=== PATIENT | male | born 2000 | race African-American/Black ===

== ENCOUNTER 2024-01-12 14:52 | Inpatient (IN) | payer OTHER ==
[~2024-01-12] VITALS: Ht 167.6 cm; Wt 61.4 kg
[2024-01-12 15:40] LABS: HEMOGLOBIN 14.5 g/dl (13.5-17.5); MEAN CORPUSCULAR HEMOGLOBIN 27.6 pg (27.0-33.0); MEAN CORPUSCULAR VOLUME 83.8 fl (80.0-96.0); PLATELET COUNT, AUTOMATED 251 10^3/uL (150-450); RED BLOOD COUNT 5.25 10^6/uL (4.30-6.10); WHITE BLOOD COUNT 4.1 10^3/uL (4.0-10.0)
[2024-01-12 16:07] LABS: ETHYL ALCOHOL (ETHANOL) 0.004 % (0.000-0.010)
[2024-01-12 16:09] LABS: ALBUMIN 4.1 G/DL (3.2-5.2); ALKALINE PHOSPHATASE 62 U/L (46-116); ALT/SGPT 23 U/L (7.0-40); AST/SGOT 12 U/L (<34); BILIRUBIN,DIRECT 0.3 MG/DL (<0.4); BILIRUBIN,TOTAL 0.8 MG/DL (0.3-1.2); BLOOD UREA NITROGEN 13 MG/DL (9-23); CALCIUM LEVEL 9.3 MG/DL (8.5-10.1); CARBON DIOXIDE LEVEL 31 MMOL/L (20-31); CHLORIDE LEVEL 106 MMOL/L (98-107); CREATININE FOR GFR 1.04 MG/DL (0.70-1.30); GLOMERULAR FILTRATION RATE > 60.0 (>60); GLUCOSE, FASTING 107 MG/DL (60-100); POTASSIUM SERUM 4.2 MMOL/L (3.5-5.1); SALICYLATE LEVEL < 3.0 MG/DL (<30); SODIUM LEVEL 139 MMOL/L (136-145); TOTAL PROTEIN 7.4 G/DL (5.7-8.2)
[2024-01-12 16:11] LABS: THYROID STIMULATING HORMONE 3.095 uIU/ML (0.55-4.78)
[2024-01-12] MEDS ORDERED: ZALE5CA PO (16:28)
[2024-01-12] MEDS ORDERED: HOME MED LIST COMPLETE! XX SCH (16:30)
[2024-01-12] MEDS: IBUPROFEN 600MG TAB PO ONE (16:36)
[2024-01-12 16:56] LABS: AMPHETAMINES LEVEL URINE NEGATIVE (NEGATIVE); BARBITURATES URINE NEGATIVE (NEGATIVE); BENZODIAZEPINES URINE NEGATIVE (NEGATIVE); CANNABINOIDS URINE NEGATIVE (NEGATIVE); COCAINE METABOLITE URINE NEGATIVE (NEGATIVE); METHADONE URINE NEGATIVE (NEGATIVE); OPIATES URINE NEGATIVE (NEGATIVE); PHENCYCLIDINE URINE NEGATIVE (NEGATIVE)
[2024-01-13] MEDS ORDERED: diphenhydrAMINE 25MG CAP PO PRN (01:45)
[2024-01-13] MEDS ORDERED: traZODone 50 MG TAB PO PRN (01:45)
[2024-01-13] MEDS ORDERED: MOM 30ML SUSPENSION UDC PO PRN (01:45)
[2024-01-13] MEDS ORDERED: MAALOX 30 ML SUSP *UDC PO PRN (01:45)
[2024-01-13 02:24] VITALS: BP 131/72; TEMP 97.9; O2SAT 100
[2024-01-13] MEDS: ACETAMINOPHEN TAB 650MG DOSE (2X325MG) PO PRN (08:59)
[2024-01-13] MEDS: buPROPion **XL** TABLET 150MG (WELLBUTRIN XL) PO SCH (10:04)
[2024-01-13 14:35] VITALS: BP 134/92; TEMP 97; O2SAT 100
[2024-01-13] MEDS: RAMELTEON 8 MG TAB (ROZEREM) PO PRN (20:35)
[2024-01-13] MEDS: IBUPROFEN 400MG TAB PO PRN (20:35)
[2024-01-14 06:15] VITALS: BP 124/63; TEMP 97.8; O2SAT 98
[2024-01-14 15:20] VITALS: BP 127/67; TEMP 97.9; O2SAT 100
[2024-01-15 06:29] VITALS: BP 112/59; TEMP 97.6; O2SAT 98
[2024-01-15] MEDS ORDERED: BUPR150T12 PO (09:30)
[2024-01-15] MEDS ORDERED: RAME8TAB2 PO (09:30)
[2024-01-15] MEDS ORDERED: ROZE8TAB16 PO (14:38)
== END 2024-01-15 12:22 | disposition home or self-care (01) | DRG 881 ==
LOC: EDBD 14:52 → M ED 14:52 → M ED INP 01-13 01:41 → M PSY 01-13 02:00
PROVIDERS: ADMIT Psychiatry & Neurology Psychiatry; ATTEND Psychiatry & Neurology Psychiatry
DX: F32.A Depression, unspecified (principal); R45.851 Suicidal ideations; R73.9 Hyperglycemia, unspecified; Z91.51 Personal history of suicidal behavior